=== PATIENT | male | born 1985 | race Caucasian/White ===

== ENCOUNTER 2020-11-03 06:23 | Emergency (ER) | payer SELFPAY ==
[~2020-11-03] VITALS: Ht 172.7 cm; Wt 125.5 kg
[2020-11-03 06:31] VITALS: BP 124/85; TEMP 98.6
[2020-11-03 07:49] LABS: STREP SCREEN NEGATIVE
[2020-11-03 08:00] VITALS: PULSE 82
== END 2020-11-03 08:00 | disposition home or self-care (01) ==
LOC: COL.ER 06:23
PROVIDERS: Emergency Medicine
DX: K12.2 Cellulitis and abscess of mouth (principal)
CPT/HCPCS: J1100